=== PATIENT | female | born 1995 | race Caucasian/White ===

== ENCOUNTER → 2018-06-30 17:29 | Outpatient (CLI) | payer OTHER, SELFPAY ==
[2018-07-03 13:27] LABS: HPV Reflexed? NOT INDICATED
== END ==
PROVIDERS: Family Provider Nurse Practitioner; PCP Nurse Practitioner; Referring Provider Obstetrics & Gynecology; Visit Provider Obstetrics & Gynecology
DX: Z12.4 Encounter for screening for malignant neoplasm of cervix (principal)
CPT/HCPCS: 87624; 88175; G0145